=== PATIENT | male | born 1995 | race Caucasian/White ===

== ENCOUNTER 2017-11-19 11:43 | Emergency (ER) | payer BC ==
[2017-11-19 11:58] VITALS: BP 150/80; TEMP 97.4; O2SAT 97
== END 2017-11-19 12:22 | disposition left against medical advice (07) ==
LOC: ER 11:43
DX: Z53.21 Procedure and treatment not carried out due to patient leaving prior to being seen by health care provider (principal)

== ENCOUNTER → 2018-08-12 | Outpatient (CLI) | payer BC | LOC: GMAJS 12:47 | PROVIDERS: ATTEND Physician Assistant | DX: L03.818 Cellulitis of other sites (principal) ==

== ENCOUNTER → 2018-12-28 | Outpatient (CLI) | payer BC ==
--- NOTE | 2018-12-28 17:55 | RAD ---
EXAM DESCRIPTION: Cervical Spine,3 Views CLINICAL HISTORY: M54.2 COMPARISON: None Available. TECHNIQUE: AP/lateral/ open-mouth odontoid FINDINGS: Mild reversal of the normal cervical lordosis. Otherwise anatomic alignment of cervical vertebrae is seen on lateral view with visualization of C1-T1. No fracture or subluxation. No prevertebral soft tissue swelling. Normal craniocervical alignment. There is preservation of the spinal laminar line. No spinous process avulsion. Odontoid base appears intact. Normal alignment of the lateral margins of C1 and C2. AP view shows normal spinous process alignment with normal alignment of the lateral masses. Lung apices are clear. IMPRESSION: Negative for fracture or posttraumatic subluxation. Electronically signed by: Alban Fajardo MD 12/28/2018 5:52 PM [facility]
--- NOTE | 2018-12-28 17:57 | RAD ---
EXAM DESCRIPTION: Lumbar Spine 3 Views CLINICAL HISTORY: M54.5 COMPARISON: None Available. TECHNIQUE: AP/lateral/coned-down lateral FINDINGS: There is S-shaped scoliotic curvature of the thoracolumbar spine. Lumbar levoscoliotic component upper L1 through lower L5 measures 13.3 degrees. Frontal view shows intact pedicles and transverse processes. Sacrum appears intact with normal SI joints. Lateral view shows no vertebral compressions. 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 Normal bony mineralization. No destructive lesion. IMPRESSION: S-shaped scoliotic curvature of the thoracolumbar spine. Electronically signed by: Alban Fajardo MD 12/28/2018 5:53 PM [facility]
--- NOTE | 2018-12-28 18:00 | RAD ---
EXAM DESCRIPTION: Thoracic Spine,AP Lateral CLINICAL HISTORY: M54.6 COMPARISON: None Available. TECHNIQUE: AP/lateral/swimmer's lateral of the thoracic spine FINDINGS: Slight rightward curvature of the mid T-spine from upper T5 through lower T8 measures 5.6 degrees. Slight leftward curvature from upper T8 through lower T10 measures 9.8 degrees. Slight rightward curvature of the lower T-spine is only partly included on this exam. No vertebral anomalies. Posterior medial ribs appear normal. Clear lungs with normal size heart. Normal appearance of the pedicles. Vertebral compressions: None Intervertebral disc spaces: Normal. Abnormal mild kyphotic curvature on the lateral view. IMPRESSION: Complex but mild curvature of the T-spine. Electronically signed by: Alban Fajardo MD 12/28/2018 5:57 PM [facility]
== END ==
LOC: RAD 14:05
PROVIDERS: ATTEND Nurse Practitioner Family
DX: M54.5 Low back pain (principal); M54.6 Pain in thoracic spine; M54.2 Cervicalgia; M41.9 Scoliosis, unspecified

== ENCOUNTER → 2019-03-15 | Outpatient (CLI) | payer BC ==
--- NOTE | 2019-03-16 09:24 | MRI ---
EXAM DESCRIPTION: Lumbar Spine w/o Contrast : Magnetic Resonance Imaging. CLINICAL HISTORY: RADICULOPATHY COMPARISON: LUMBAR TECHNIQUE: Multiplanar, multiple standard sequences, non contrast MRI, lumbar spine. FINDINGS: L5-S1: Minimal disc space loss and disc desiccation. No bulging. Concavity in the inferior L4 endplate. Moderate left foraminal narrowing and minimal right foraminal narrowing. Posterior elements unremarkable. L4-L5: Minimal disc desiccation. No bulging. Small concavities in the superior and inferior endplate. Posterior elements unremarkable. Mild canal narrowing. Bilateral mild foraminal narrowing. L3-L4: Normal signal in the disc with no posterior bulging. Small concavities in the superior and inferior endplates. Mild bilateral foraminal narrowing more on the right than the left. Posterior elements are unremarkable and Canal patent. L2-L3: Normal signal in the disc with no posterior bulging. Small concavities in the superior and inferior endplates. Posterior elements unremarkable. Canal is patent. Bilateral foramina are patent. L1-L2: Normal signal in the disc with no posterior bulging. Small, smooth concavities in the superior and inferior endplates. Posterior elements are unremarkable. Canal and foramina are patent. T12-L1: Normal signal in the disc with disc space preserved. No bulging. Posterior elements unremarkable. Canal and foramina are patent. Conus terminates at this level. L1-L4 levoscoliosis. Paravertebral soft tissues negative.. Normal marrow signal in the remaining vertebral bodies and the posterior elements. Vertebral bodies are not compressed at any level. IMPRESSION: 1. Multiple levels of smooth concavities in the endplates, more pronounced in the inferior segments. No abnormal marrow edema or significant erosive changes. 2. Minimal disc space loss and disc desiccation at L5-S1 but no significant bulging. No significant canal or right foraminal narrowing moderate narrowing left foramen. Minimal disc desiccation L4-5 disc with no bulging. No significant canal or foraminal narrowing.. Electronically signed by: Lebron Valdes MD 03/16/2019 9:22 AM CDT
== END ==
LOC: MRI 14:02
PROVIDERS: ATTEND Family Medicine
DX: M51.16 Intervertebral disc disorders with radiculopathy, lumbar region (principal); M51.17 Intervertebral disc disorders with radiculopathy, lumbosacral region

== ENCOUNTER → 2019-06-27 | Outpatient (CLI) | payer BC | LOC: GMAM 10:51 | PROVIDERS: ATTEND Family Medicine | DX: G47.00 Insomnia, unspecified (principal) ==

== ENCOUNTER → 2019-09-29 | Outpatient (CLI) | payer BC | END | disposition home or self-care (01) | LOC: GMA 12:32 | PROVIDERS: ATTEND Family Medicine | DX: R00.2 Palpitations (principal) ==

== ENCOUNTER → 2019-10-06 | Outpatient (CLI) | payer BC | LOC: RESP 14:09 | PROVIDERS: ATTEND Family Medicine | DX: R00.2 Palpitations (principal) ==